=== PATIENT | male | born 2000 | race Caucasian/White ===

== ENCOUNTER 2022-06-10 15:28 | Outpatient (CLI) | payer BC | END 2022-06-10 15:29 | disposition home or self-care (01) | LOC: CSHWCC 15:28 | PROVIDERS: ATTEND Nurse Practitioner Family | DX: T22.212D Burn of second degree of left forearm, subsequent encounter (principal) | CPT/HCPCS: 16020; 99203; G0463 ==

== ENCOUNTER 2022-06-20 09:39 | Outpatient (CLI) | payer BC | END 2022-06-20 09:40 | disposition home or self-care (01) | LOC: CSHWCC 09:39 | PROVIDERS: ATTEND Nurse Practitioner Family | DX: T22.212D Burn of second degree of left forearm, subsequent encounter (principal); T21.29XD Burn of second degree of other site of trunk, subsequent encounter | CPT/HCPCS: 99213; G0463 ==

== ENCOUNTER 2022-06-24 10:39 | Outpatient (CLI) | payer BC | END 2022-06-24 10:40 | disposition home or self-care (01) | LOC: CSHWCC 10:39 | PROVIDERS: ATTEND Nurse Practitioner Family | DX: T22.212D Burn of second degree of left forearm, subsequent encounter (principal) | CPT/HCPCS: 16020 ==

== ENCOUNTER 2022-07-01 14:51 | Outpatient (CLI) | payer BC | END 2022-07-01 14:52 | disposition home or self-care (01) | LOC: CSHWCC 14:51 | PROVIDERS: ATTEND Nurse Practitioner Family | DX: T22.212D Burn of second degree of left forearm, subsequent encounter (principal) | CPT/HCPCS: 99212; G0463 ==

== ENCOUNTER 2022-07-08 15:24 | Outpatient (CLI) | payer BC | END 2022-07-08 15:25 | disposition home or self-care (01) | LOC: CSHWCC 15:24 | PROVIDERS: ATTEND Nurse Practitioner Family | DX: T22.212D Burn of second degree of left forearm, subsequent encounter (principal) | CPT/HCPCS: 99212; G0463 ==

== ENCOUNTER 2022-07-22 09:37 | Outpatient (CLI) | payer BC | END 2022-07-22 09:38 | disposition home or self-care (01) | LOC: CSHWCC 09:37 | PROVIDERS: ATTEND Nurse Practitioner Family | DX: T22.212D Burn of second degree of left forearm, subsequent encounter (principal) | CPT/HCPCS: 99212; G0463 ==